=== PATIENT | male | born 2000 | race African-American/Black ===

== ENCOUNTER 2021-09-30 00:57 | Emergency (ER) | payer BC, SELFPAY ==
--- NOTE | ~2021-09-30 | XR_ITS ---
EXAMINATION: XR shoulder RT 1V INDICATION: Right shoulder dislocation TECHNIQUE: Single AP view of the shoulder is obtained. COMPARISON: None available FINDINGS: There appears to be anterior and inferior dislocation of the right humeral head with respec t to the glenoid. No fracture is identified. IMPRESSION: 1. Likely anterior/inferior right humeral head dislocation. Reviewed, dictated and finalized at location A. ER SIZER
--- NOTE | ~2021-09-30 | XR_ITS ---
EXAMINATION: XR shoulder RT min 2V INDICATION: Right shoulder dislocation post reduction TECHNIQUE: Two views of the right shoulder are obtained on three radiographs. COMPARISON: 0109 hours FINDINGS: Normal alignment. No fracture. Glenohumeral and acromioclavicular joint spaces are normal. Soft tissues are unremarkable. IMPRESSION: 1. Reduced shoulder dislocation. Reviewed, dictated and finalized at location A. R RELATIONS SUPERVISOR
--- NOTE | 2021-09-30 01:22 | ED.UPPEXIN ---
HPI - Extremity Injury (Upper) General Chief Complaint: Extremity Injury, Upper Stated Complaint: right shoulder pain, obvious deformity Time Seen by Provider: 09/30/21 01:10 History of Present Illness HPI narrative: Patient presents with right shoulder pain. Patient reports he was celebrating graduating this evening him and her friend both dove for a bottle on the ground and they landed on top of each other. He had immediate right shoulder pain and noticed it was deformed so he came to the ER concern for a dislocation. Pain is sharp, constant, worse with attempting to move his right shoulder radiates down his arm. Denies striking his head denies any focal numbness or weakness. Related Data Allergies Allergy/AdvReac Type Severity Reaction Status Date / Time No Known Allergies Allergy Verified 09/30/21 01:31 Review of Systems Review of Systems: CONSTITUTIONAL: Denies fever, chills, or sweats. EYES: Denies visual changes, redness, or discharge. ENT: Denies rhinorrhea, congestion, sore throat, or otalgia. CARDIOVASCULAR: Denies chest pain, palpitations, or edema. RESPIRATORY: Denies cough or dyspnea. GASTROINTESTINAL: Denies abdominal pain, nausea, vomiting, or diarrhea. GENITOURINARY: Denies dysuria or hematuria. SKIN: Denies rash or itching. MUSCULOSKELETAL: Denies back pain, joint pain, or myalgia. NEUROLOGIC: Denies headache, numbness, dizziness, or weakness. PSYCHIATRIC: Denies anxiety or depression. All systems reviewed & are unremarkable except as noted in HPI and below PMFSH Past Medical History Medical History (Updated 09/30/21 @ 01:28 by Sage Perry MD) Patient denies significant medical history Social History Social History (Updated 09/30/21 @ 01:25 by Sage Perry MD) Occupation/Education: student Exam Narrative: GENERAL: Well-appearing, well-nourished, and in no acute distress. HEAD: Normocephalic, atraumatic. EYES: PERRLA and EOMI. ENT: Nares clear, no rhinorrhea or epistaxis. Mucous membranes moist. NECK: Supple. No masses. No JVD EXTREMITIES: Obvious deformity to the right shoulder distal extremity with good strength sensation and cap refill no open or draining wounds SKIN: Warm, dry, no rash. NEURO: No focal deficits. Alert and oriented x3. PSYCH: Normal mood and affect. Course Reevaluation(s) Reevaluation #1: Patient's pain is much improved after the reduction post reduction films are with appropriate alignment. Patient is comfortable with outpatient plan. Date: 09/30/21 Time: 01:26 Vital Signs Vital signs: Vital Signs Temperature 37.1 C 09/30/21 01:26 Pulse Rate 115 H 09/30/21 01:26 Respiratory Rate 20 09/30/21 01:26 Blood Pressure 150/84 H 09/30/21 01:26 Pulse Oximetry 100 09/30/21 01:26 Temperature 37.1 C 09/30/21 01:26 Pulse Rate 115 H 09/30/21 01:26 Respiratory Rate 20 09/30/21 01:26 Blood Pressure 150/84 H 09/30/21 01:26 Pulse Oximetry 100 09/30/21 01:26 Procedures Orthopedic Joint Reduction Joint #1: Orthopedic Joint Reduction Date: 09/30/21 Orthopedic Joint Reduction Time: 01:13 Time Out Performed: No Side: right Joint Reduction Location: shoulder Analgesia: hematoma block Pre-Procedure Neuro Vascular Exam: normal Local Anesthesia: lidocaine 1% and with epi Amount of anesthesic used (mL): 9 Shoulder Technique Used (if applicable): traction/counter-traction Post-reduction neuro exam: intact Post-reduction vascular: intact Post Reduction X-Ray Obtained: Yes Post Reduction X-Ray Results: reduced Splint Applied: No (Shoulder sling given) Patient Tolerated Procedure: well MDM - Extremity Injury (Upper) MDM Narrative Medical decision making narrative: H&P as above, vss, pt looks clinically well, exam with obvious right shoulder deformity distal extremity is neurovascularly intact, imaging initially with shoulder dislocation postreduction f
[2021-09-30 01:26] VITALS: BP 150/84; PULSE 115; RESP 20; TEMP 37.1; O2SAT 100
--- NOTE | 2021-09-30 01:38 | PC.NURSE ---
10mL of lidocaine with 1% epi pulled from [facility] per EDP [place] VORB. EDP [place] administered.
== END 2021-09-30 01:42 | disposition home or self-care (01) ==
PROVIDERS: Emergency Provider Emergency Medicine
DX: S43.004A Unspecified dislocation of right shoulder joint, initial encounter (principal); W50.0XXA Accidental hit or strike by another person, initial encounter
CPT/HCPCS: 23650; 73020; 73030; 99285; A4565